=== PATIENT | female | born 2000 | race Caucasian/White ===

== ENCOUNTER 2018-11-28 00:12 | Emergency (ER) | payer SELFPAY ==
[~2018-11-28] VITALS: Ht 154.9 cm; Wt 84.1 kg
[2018-11-28] MEDS ORDERED: PROAIR HFA0.09 MG/AC IH (00:49)
[2018-11-28 01:09] VITALS: BP 109/61
== END 2018-11-28 01:30 | disposition home or self-care (01) ==
LOC: ED 00:12
DX: J45.909 Unspecified asthma, uncomplicated (principal); J32.9 Chronic sinusitis, unspecified